=== PATIENT | female | born 1950 | race African-American/Black ===

== ENCOUNTER 2017-10-07 13:40 | Inpatient (IN) | payer OTHER ==
--- NOTE | 2017-10-07 14:11 | PDOC ---
History of Present Illness - General Chief Complaint: Pain, Acute Stated Complaint: PAIN,WEAKNESS Time Seen by Provider: 10/07/17 13:50 - History of Present Illness Initial Comments: 10/07/17 14:32 The patient is a 67 year old female with a history of obesity, HTN, HLD, DM who presents for evaluation of lower back pain. The patient reports gradual onset of left sided lower back pain with radiation into her left posterior thigh beginnin yesterday evening. She reports worsening pain prompting her to call ems for presentation to the ED. She states that the pain is very sharp in quality and worsens with palpation and with movement. She notes that if she keeps pressure off her lower back, it somewhat relieves her symptoms. She denies any incontinence, numbness, tingling, or weakness in her lower extremities and denies any saddle anesthesia. She denies fevers, chills, SOB, chest pain, abdominal pain, or changes with urination or bowel movements. Past History - Past Medical History Allergies/Adverse Reactions: Allergies Allergy/AdvReac Type Severity Reaction Status Date / Time Penicillins Allergy Verified 10/07/17 13:48 Sulfa (Sulfonamide Allergy Verified 10/07/17 13:48 Antibiotics) Home Medications: Ambulatory Orders Atorvastatin Ca [Lipitor] 20 mg PO HS 10/07/17 Furosemide [Lasix] 40 mg PO DAILY 10/07/17 Glipizide Xl [Glucotrol Xl -] 10 mg PO DAILY@0700 10/07/17 Asthma: Yes COPD: No Diabetes: Yes HTN: Yes Hypercholesterolemia: Yes - Surgical History Abdominal Surgery: Yes (HERNIA.) - Suicide/Smoking/Psychosocial Hx Smoking History: Never smoked Have you smoked in the past 12 months: No Information on smoking cessation initiated: No Hx Alcohol Use: No Drug/Substance Use Hx: No Substance Use Type: None Review of Systems - Review of Systems Comments:: 10/07/17 14:34 Constitutional: No fevers, chills, fatigue, malaise HEENT: No Rhinorrhea, nasal congestion, visual changes Cardiovascular: No chest pain, syncope, palpitations, lightheadedness Respiratory: No Cough, SOB, Hemoptysis, Gastrointestinal: No Abdominal pain, Nausea, Vomiting, Constipation, Diarrhea, Melena Genitourinary: No Dysuria, Frequency, Urgency, Hesitancy, Hematuria, Flank pain Musculoskeletal: Lower back pain. No Myalgia, arthralgia Skin: No rashes, bruising, pallor Neurologic: No Headache, Dizziness, Numbness, Weakness, or Tingling Psychiatric: No Hallucinations. No SI or HI *Physical Exam - Vital Signs Last Vital Signs Temp Pulse Resp BP Pulse Ox 98.5 F 86 18 141/70 100 10/07/17 13:48 10/07/17 13:48 10/07/17 13:48 10/07/17 13:48 10/07/17 13:48 - Physical Exam Comments: 10/07/17 14:35 General Appearance: Nourished. No Apparent Distress HEENT: EOMI, LAURA. No Pharyngeal Erythema, Tonsillar Exudate, Tonsillar Erythema Neck: No Cervical Lymphadenopathy Respiratory/Chest: Lungs Clear, Normal Breath Sounds. No Crackles, Rales, Rhonchi, Wheezing Cardiovascular: Regular Rhythm, Regular Rate. No Murmur, Gallops, Rubs Gastrointestinal/Abdominal: Normal Bowel Sounds, Soft. No Guarding, Rebound, Tenderness Musculoskeletal: Reproducible tenderness to palpation of the left lower back and left gluteus muscle. No midline tenderness or left sided lower back tenderness. No CVA Tenderness Extremity: Normal Capillary Refill Integumentary: Normal Color, Dry, Warm Neurologic: oil exploration engineer II-XII NML intact, Fully Oriented, Alert, Normal Mood/Affect, Normal Response, Motor Strength 5/5. Normal Finger to Nose and Heel to [place]. Sensation to light touch and temperature intact in the distal extremities bilaterally. Medical Decision Making - Medical Decision Making 10/07/17 14:37 The patient is a 67 year old female with a history of obesity, HTN, HLD, DM who presents for evaluation of lower back pain. Differential includes but is not limited to: Musculoskeletal pain, sciatica, disc herniation, compression fracture, UTI. Given the patient's symptoms and reproducible pain on physical exam, it is likely her symptoms are musculoskeletal in nature. However we will obtain a UA and plain films to evaluate for other etiologies. We will treat the patient with percocet, valium, and toradol here in the ED and continue to monitor and reassess. 10/07/17 17:46 Patient reports minimal improvement in her symptoms despite medications. She continues to be unable to ambulate due to her symptoms. We believe that she requires observation admission for further management at this time and PT evaluation given her continued symptoms despite maximal medical management. We discussed the case with Dr. Canchloa who accepted the patient for admission. *DC/Admit/Observation/Transfer Diagnosis at time of Disposition: Lower back pain Qualifiers: Chronicity: acute Back pain laterality: left Sciatica presence: with sciatica Sciatica laterality: sciatica of left side Qualified Code(s): M54.42 - Lumbago with sciatica, left side - Discharge Dispostion Condition at time of disposition: Stable Admit: Yes - Referrals Referrals: Rasheed New MD [Primary Care Provider] - - Patient Instructions - Post Discharge Activity
[2017-10-07] MEDS ORDERED: diazePAM 5 MG TABLET PO ONE (14:17)
[2017-10-07] MEDS ORDERED: KETOROLAC TROMETHAMINE 60 MG/2 ML VIAL IM ONE (14:17)
[2017-10-07] MEDS ORDERED: diazePAM 5 MG TABLET ONE (14:26)
[2017-10-07] MEDS ORDERED: KETOROLAC TROMETHAMINE 60 MG/2 ML VIAL ONE (14:26)
[2017-10-07 15:17] LABS: URINE APPEARANCE CLEAR; URINE BILIRUBIN NEGATIVE (NEGATIVE); URINE BLOOD 1+ (NEGATIVE); URINE COLOR LTYELLOW; URINE GLUCOSE (UA) NEGATIVE (NEGATIVE); URINE KETONE NEGATIVE (NEGATIVE); URINE LEUK ESTERASE NEGATIVE (NEGATIVE); URINE NITRITE NEGATIVE (NEGATIVE); URINE PROTEIN NEGATIVE (NEGATIVE); URINE UROBILINOGEN NEGATIVE mg/dL (0.2-1.0)
--- NOTE | 2017-10-07 15:17 | PDOC ---
Attending Attestation - Resident Resident Name: Faizan Moserel - ED Attending Attestation I have performed the following: I have examined & evaluated the patient, The case was reviewed & discussed with the resident, I agree w/resident's findings & plan, Exceptions are as noted - HPI HPI: 10/07/17 15:15 67-year-old female with history of morbid obesity presents with atraumatic left low back/left leg pain since yesterday. No motor or sensory deficits, no bladder or bowel issues. No fevers or chills. Pain radiates from the left buttock posteriorly in her thigh to her knee - Physicial Exam PE: 10/07/17 15:15 vital signs normal, afebrile. Seated on stretcher, morbidly obese No midline spine tenderness or deformity, reproducible discomfort in the left upper buttock 5 out of 5 flexion/extension at bilateral hip/knee/ankle/toes. Neurovascularly intact distally. - Medical Decision Making 10/07/17 15:16 Patient seen and evaluated with the resident. I agree with the overall evaluation, assessment, and management with the following summary of visit: 67-year-old female with morbid obesity presents with left low back/posterior thigh pain consistent with sciatica, possible lumbar radiculopathy. Limited red flags on history and physical exam, neurologically intact. UA LS-spine film Pain control Reassess
[2017-10-07 15:28] LABS: EPI CELLS RARE /HPF (FEW); URINE BACTERIA RARE /hpf (NONE SEEN); URINE HYALINE CAST 5 /lpf
--- NOTE | 2017-10-07 19:25 | HP ---
Admitting History and Physical - Primary Care Physician PCP: Lorie Canchola - Admission History of Present Illness: 67 year old female with a history of obesity, HTN, HLD, DM who presents for evaluation of lower back pain. The patient reports gradual onset of left sided lower back pain with radiation into her left posterior thigh beginnin yesterday evening. She reports worsening pain prompting her to call ems for presentation to the ED. She states that the pain is very sharp in quality and worsens with palpation and with movement. She notes that if she keeps pressure off her lower back, it somewhat relieves her symptoms. She denies any incontinence, numbness, tingling, or weakness in her lower extremities and denies any saddle anesthesia. She denies fevers, chills, SOB, chest pain, abdominal pain, or changes with urination or bowel movements. - Past Medical History Cardiovascular: Yes: HTN, Hyperlipdemia Endocrine: Yes: Diabetes Mellitus - Smoking History Smoking history: Never smoked Have you smoked in the past 12 months: No - Alcohol/Substance Use Hx Alcohol Use: No Home Medications - Allergies Allergies/Adverse Reactions: Allergies Allergy/AdvReac Type Severity Reaction Status Date / Time Penicillins Allergy Verified 10/07/17 13:48 Sulfa (Sulfonamide Allergy Verified 10/07/17 13:48 Antibiotics) - Home Medications Home Medications: Ambulatory Orders Atorvastatin Ca [Lipitor] 20 mg PO HS 10/07/17 Furosemide [Lasix] 40 mg PO DAILY 10/07/17 Glipizide Xl [Glucotrol Xl -] 10 mg PO DAILY@0700 10/07/17 Physical Examination Vital Signs: Vital Signs Temperature 98.5 F 10/07/17 13:48 Pulse Rate 81 10/07/17 18:52 Respiratory Rate 18 10/07/17 18:52 Blood Pressure 136/74 10/07/17 18:52 O2 Sat by Pulse Oximetry (%) 99 10/07/17 18:52 Constitutional: Yes: Calm HENT: Yes: Atraumatic Neck: Yes: Supple Cardiovascular: Yes: Regular Rate and Rhythm Respiratory: Yes: CTA Bilaterally Gastrointestinal: Yes: Normal Bowel Sounds Extremities: Yes: WNL Edema: LLE: Trace, RLE: Trace Peripheral Pulses WNL: Yes Neurological: Yes: Alert, Oriented ...Motor Strength: WNL Problem List - Problems (1) HTN (hypertension) Assessment/Plan: on meds Code(s): I10 - ESSENTIAL (PRIMARY) HYPERTENSION (2) Diabetes Assessment/Plan: on po meds Code(s): E11.9 - TYPE 2 DIABETES MELLITUS WITHOUT COMPLICATIONS (3) HLD (hyperlipidemia) Assessment/Plan: on meds Code(s): E78.5 - HYPERLIPIDEMIA, UNSPECIFIED (4) Lower back pain Assessment/Plan: more like sciatica prn pain meds pt eval neuro eval Code(s): M54.5 - LOW BACK PAIN Qualifiers: Chronicity: acute Back pain laterality: left Sciatica presence: with sciatica Sciatica laterality: sciatica of left side Qualified Code(s): M54.42 - Lumbago with sciatica, left side Assessment/Plan Laboratory Tests 10/07/17 15:10 Urine Color Ltyellow Urine Appearance Clear Urine pH 5.0 Ur Specific [place] 1.013 Urine Protein Negative Urine Glucose (UA) Negative Urine Ketones Negative Urine Blood 1+ H Urine Nitrite Negative Urine Bilirubin Negative Urine Urobilinogen Negative Ur Leukocyte Esterase Negative Urine WBC (Auto) 1 Urine RBC (Auto) <1 Ur Epithelial Cells Rare Urine Bacteria Rare Hyaline Casts 5 Active Medications Generic Name Dose Route Start Last Admin Trade Name Freq PRN Reason Stop Dose Admin Acetaminophen 650 mg 10/07/17 19:27 10/07/17 20:13 Tylenol - PO 650 mg Q6H PRN Administration FEVER OR PAIN Atorvastatin Calcium 20 mg 10/07/17 22:00 10/07/17 22:42 Lipitor - PO 20 mg HS ELI Administration Furosemide 40 mg 10/08/17 10:00 10/08/17 10:46 Lasix - PO 40 mg DAILY ELI Administration Gabapentin 400 mg 10/08/17 22:00 Neurontin - PO TID ELI Glipizide 10 mg 10/08/17 07:00 10/08/17 08:09 Glucotrol Xl - PO 10 mg DAILY@0700 ELI Administration Ibuprofen 600 mg 10/08/17 19:09 Motrin - PO Q8H PRN pain Ondansetron HCl 4 mg 10/08/17 14:52 10/08/17 15:03 Zofran Injection IVPB 4 mg Q4H PRN Administration NAUSEA AND/OR VOMITING Laboratory Results - last 24 hr 10/07/17 10/08/17 10/08/17 07:30 00:10 16:47 WBC 8.4 RBC 4.01 Hgb 11.6 Hct 37.5 MCV 93.5 MCH 29.0 MCHC 31.0 L RDW 15.7 H Plt Count 247 MPV 9.0 Neutrophils % 49.7 Lymphocytes % 37.3 D Monocytes % 9.2 Eosinophils % 3.1 D Basophils % 0.7 Sodium 143 Potassium 3.9 Chloride 105 Carbon Dioxide 29 Anion Gap 9 BUN 18 Creatinine 1.0 Creat Clearance w eGFR 54.97 POC Glucometer 97 Random Glucose 149 H Calcium 8.9 Total Bilirubin 0.5 AST 17 ALT 15 Alkaline Phosphatase 137 H Total Protein 6.8 Albumin 3.0 L
[2017-10-07] MEDS ORDERED: ACETAMINOPHEN 325 MG TABLET (FP) ONE (20:06)
[2017-10-07] MEDS: ACETAMINOPHEN 325 MG TABLET (FP) PO PRN (20:13)
[2017-10-07] MEDS ORDERED: ATORVASTATIN CA 40 MG TABLET (FP) ONE (22:31)
[2017-10-07] MEDS ORDERED: GABAPENTIN 100 MG CAPSULE (FP) ONE (22:32)
[2017-10-07] MEDS: ATORVASTATIN CA 20 MG TABLET (FP) PO SCH (22:42)
[2017-10-07] MEDS: GABAPENTIN 100 MG CAPSULE (FP) PO SCH (22:42)
[2017-10-08 00:50] LABS: ANION GAP 9 (8-16); BLOOD UREA NITROGEN 18 mg/dL (7-18); CALCIUM 8.9 mg/dL (8.5-10.1); CHLORIDE 105 mmol/L (98-107); CO2 29 mmol/L (21-32); GLUCOSE,RANDOM 149 mg/dL (74-106); POTASSIUM 3.9 mmol/L (3.5-5.1); SGOT/AST 17 U/L (15-37); SGPT/ALT 15 U/L (12-78); SODIUM 143 mmol/L (136-145)
[2017-10-08 00:51] LABS: ALK PHOS 137 U/L (45-117); BILIRUBIN,TOTAL 0.5 mg/dL (0.2-1.0); TOT PROT 6.8 g/dl (6.4-8.2)
[2017-10-08] MEDS ORDERED: HYDROmorphone HCL CARPU-JECT 1 MG/1 ML DISP.SYRIN ONE ×2 (03:35→12:33)
[2017-10-08] MEDS: HYDROmorphone HCL CARPU-JECT 1 MG/1 ML DISP.SYRIN IVPB PRN ×2 (03:53→12:45)
[2017-10-08] MEDS: GABAPENTIN 100 MG CAPSULE (FP) PO SCH ×2 (06:55→15:11)
[2017-10-08] MEDS: glipiZIDE-XL 10 MG TAB.ER.24 (FP) PO SCH (08:09)
[2017-10-08 08:31] LABS: BASO % 0.7 % (0-2.0); EOS % 3.1 % (0-4.5); HEMATOCRIT 37.5 % (32.4-45.2); HEMOGLOBIN 11.6 GM/dL (10.7-15.3); LYMPH % 37.3 % (8-40); MEAN CELL VOLUME 93.5 fl (80-96); MONO % 9.2 % (3.8-10.2); NEUT % 49.7 % (42.8-82.8); PLATELET COUNT 247 K/MM3 (134-434); RBC 4.01 M/mm3 (3.60-5.2); RDW 15.7 % (11.6-15.6); WHITE BLOOD COUNT 8.4 K/mm3 (4.0-10.0)
[2017-10-08] MEDS: FUROSEMIDE 40 MG TABLET (FP) PO SCH (10:46)
[2017-10-08 14:14] VITALS: BMI 52.6
[2017-10-08] MEDS ORDERED: oxyCODONE HCL 5 MG TABLET PO PRN ×2 (14:52→22:14)
[2017-10-08] MEDS ORDERED: ONDANSETRON 4 MG/2 ML VIAL IVPB PRN (14:52)
[2017-10-08] MEDS ORDERED: ONDANSETRON 4 MG/2 ML VIAL ONE (15:00)
--- NOTE | 2017-10-08 18:14 | CON.NEURO ---
Consult - Past Medical History Cardio/Vascular: Yes: HTN, Hyperlipdemia Endocrine: Yes: Diabetes Mellitus - Alcohol/Substance Use Hx Alcohol Use: No - Smoking History Smoking history: Never smoked Have you smoked in the past 12 months: No Home Medications - Allergies Allergies/Adverse Reactions: Allergies Allergy/AdvReac Type Severity Reaction Status Date / Time Penicillins Allergy Verified 10/07/17 13:48 Sulfa (Sulfonamide Allergy Verified 10/07/17 13:48 Antibiotics) - Home Medications Home Medications: Ambulatory Orders Atorvastatin Ca [Lipitor] 20 mg PO HS 10/07/17 Furosemide [Lasix] 40 mg PO DAILY 10/07/17 Glipizide Xl [Glucotrol Xl -] 10 mg PO DAILY@0700 10/07/17 Physical Exam-Neuro Vital Signs: Vital Signs Temperature 97.4 F L 10/08/17 15:00 Pulse Rate 68 10/08/17 15:00 Respiratory Rate 20 10/08/17 15:00 Blood Pressure 168/90 10/08/17 15:00 O2 Sat by Pulse Oximetry (%) 99 10/08/17 17:44 Labs: CBC, BMP 10/07/17 07:30 10/08/17 00:10 Assessment/Plan cc Severe low back pain for two days HPI 67 year old female history of obesity, htn, dm, hld came with severe low back pain for two days. She denies bowel or bladder symptoms. She says she could not walk. She has both hip replaced in past . She is waiting for right knee replacement. She denies any trauma, fever or cancer. Pains is moderate to severe intensity. activity makes her pain worse. PMH as above Allergies/Adverse Reactions: Allergies Allergy/AdvReac Type Severity Reaction Status Date / Time Penicillins Allergy Verified 10/07/17 13:48 Sulfa (Sulfonamide Allergy Verified 10/07/17 13:48 Antibiotics) - Home Medications Atorvastatin Ca [Lipitor] 20 mg PO HS 10/07/17 Furosemide [Lasix] 40 mg PO DAILY 10/07/17 Glipizide Xl [Glucotrol Xl -] 10 mg PO DAILY@0700 10/07/17 Neurological Examination Alert oriented x 3 CN all intact localized back tenderness there is no sensory loss left knee reflex are normal, ankle reflex is diminished motor exam is normal, except she has poor affort in left hip flexion Assessment- Severe radicular low back pain, no evidence of cauda equina syndrome , most likley l5-s1 radiculopathy. She is obese and not sure if she would fit into mri machine. She is not open to get mri of L spine Plan -- suggest to start gabapnetin and prednisone 20 mg once a day for three days - opoioid prn for pain -PT - Consider Pain management - MRI of L spine Thanks for consult Ignacio Thomason MD
[2017-10-08] MEDS ORDERED: predniSONE 20 MG TABLET (UD) PO ONE (18:30)
--- NOTE | 2017-10-08 19:22 | PN ---
Progress Note, Physician History of Present Illness: still has pain - Current Medication List Current Medications: Active Medications Acetaminophen (Tylenol -) 650 mg PO Q6H PRN PRN Reason: FEVER OR PAIN Last Admin: 10/07/17 20:13 Dose: 650 mg Atorvastatin Calcium (Lipitor -) 20 mg PO HS [facility] Last Admin: 10/07/17 22:42 Dose: 20 mg Furosemide (Lasix -) 40 mg PO DAILY [facility] Last Admin: 10/08/17 10:46 Dose: 40 mg Gabapentin (Neurontin -) 400 mg PO TID [facility] Glipizide (Glucotrol Xl -) 10 mg PO DAILY@0700 [facility] Last Admin: 10/08/17 08:09 Dose: 10 mg Ibuprofen (Motrin -) 600 mg PO Q8H PRN PRN Reason: pain Ondansetron HCl (Zofran Injection) 4 mg IVPB Q4H PRN PRN Reason: NAUSEA AND/OR VOMITING Last Admin: 10/08/17 15:03 Dose: 4 mg - Objective Vital Signs: Vital Signs Temperature 97.4 F L 10/08/17 15:00 Pulse Rate 68 10/08/17 15:00 Respiratory Rate 20 10/08/17 15:00 Blood Pressure 168/90 10/08/17 15:00 O2 Sat by Pulse Oximetry (%) 99 10/08/17 17:44 Constitutional: Yes: No Distress HENT: Yes: Atraumatic Neck: Yes: Supple Cardiovascular: Yes: Regular Rate and Rhythm Respiratory: Yes: CTA Bilaterally Gastrointestinal: Yes: Normal Bowel Sounds Extremities: Yes: WNL Neurological: Yes: Alert, Oriented ...Motor Strength: WNL Labs: CBC, BMP 10/07/17 07:30 10/08/17 00:10 Problem List - Problems (1) HTN (hypertension) Assessment/Plan: on meds Code(s): I10 - ESSENTIAL (PRIMARY) HYPERTENSION (2) Diabetes Assessment/Plan: on po meds Code(s): E11.9 - TYPE 2 DIABETES MELLITUS WITHOUT COMPLICATIONS (3) HLD (hyperlipidemia) Assessment/Plan: on meds Code(s): E78.5 - HYPERLIPIDEMIA, UNSPECIFIED (4) Lower back pain Assessment/Plan: more like sciatica prn pain meds pt eval neuro eval pain management Code(s): M54.5 - LOW BACK PAIN Qualifiers: Chronicity: acute Back pain laterality: left Sciatica presence: with sciatica Sciatica laterality: sciatica of left side Qualified Code(s): M54.42 - Lumbago with sciatica, left side
[2017-10-08] MEDS: IBUPROFEN 600 MG TABLET (FP) PO PRN (20:26)
[2017-10-08] MEDS: GABAPENTIN 400 MG CAPSULE (FP) PO SCH (22:53)
[2017-10-08] MEDS: ATORVASTATIN CA 20 MG TABLET (FP) PO SCH (22:53)
[2017-10-09] MEDS ORDERED: amLODIPine BESYLATE 5 MG TABLET (FP) PO ONE (00:45)
[2017-10-09] MEDS: GABAPENTIN 400 MG CAPSULE (FP) PO SCH ×3 (05:50→21:11)
[2017-10-09] MEDS: IBUPROFEN 600 MG TABLET (FP) PO PRN ×3 (05:50→21:10)
[2017-10-09] MEDS: glipiZIDE-XL 10 MG TAB.ER.24 (FP) PO SCH (06:15)
[2017-10-09] MEDS: ACETAMINOPHEN 325 MG TABLET (FP) PO PRN (09:20)
[2017-10-09] MEDS: FUROSEMIDE 40 MG TABLET (FP) PO SCH (09:57)
[2017-10-09] MEDS ORDERED: DOCUSATE SODIUM 100 MG CAPSULE (FP) PO SCH (10:00)
[2017-10-09] MEDS: DOCUSATE SODIUM 100 MG CAPSULE (FP) PO SCH ×2 (11:45→21:11)
[2017-10-09] MEDS: POLYETHYLENE GLYCOL 3350 119 GM BTL PO SCH (13:56)
--- NOTE | 2017-10-09 17:26 | PN ---
Progress Note, Physician History of Present Illness: still has pain - Current Medication List Current Medications: Active Medications Acetaminophen (Tylenol -) 650 mg PO Q6H PRN PRN Reason: FEVER OR PAIN Last Admin: 10/09/17 09:20 Dose: 650 mg Atorvastatin Calcium (Lipitor -) 20 mg PO HS [facility] Last Admin: 10/08/17 22:53 Dose: 20 mg Docusate Sodium (Colace -) 100 mg PO BID [facility] Last Admin: 10/09/17 11:45 Dose: Not Given Furosemide (Lasix -) 40 mg PO DAILY [facility] Last Admin: 10/09/17 09:57 Dose: 40 mg Gabapentin (Neurontin -) 400 mg PO TID [facility] Last Admin: 10/09/17 13:56 Dose: 400 mg Glipizide (Glucotrol Xl -) 10 mg PO DAILY@0700 [facility] Last Admin: 10/09/17 06:15 Dose: 10 mg Ibuprofen (Motrin -) 600 mg PO Q8H PRN PRN Reason: pain Last Admin: 10/09/17 13:54 Dose: 600 mg Ondansetron HCl (Zofran Injection) 4 mg IVPB Q4H PRN PRN Reason: NAUSEA AND/OR VOMITING Last Admin: 10/08/17 15:03 Dose: 4 mg Oxycodone HCl (Roxicodone -) 5 mg PO Q6H PRN Last Admin: 10/09/17 09:18 Dose: 5 mg Polyethylene Glycol (Miralax (For Daily Use) -) 17 gm PO DAILY [facility] Last Admin: 10/09/17 13:56 Dose: 17 grams - Objective Vital Signs: Vital Signs Temperature 98.1 F 10/09/17 14:31 Pulse Rate 70 10/09/17 15:58 Respiratory Rate 20 10/09/17 15:58 Blood Pressure 154/89 10/09/17 15:58 O2 Sat by Pulse Oximetry (%) 98 10/09/17 09:30 Constitutional: Yes: No Distress HENT: Yes: Atraumatic Neck: Yes: Supple Cardiovascular: Yes: Regular Rate and Rhythm Respiratory: Yes: CTA Bilaterally Gastrointestinal: Yes: Normal Bowel Sounds Extremities: Yes: WNL Neurological: Yes: Alert, Oriented Labs: CBC, BMP 10/07/17 07:30 10/08/17 00:10 Problem List - Problems (1) HTN (hypertension) Assessment/Plan: on meds Code(s): I10 - ESSENTIAL (PRIMARY) HYPERTENSION (2) Diabetes Assessment/Plan: on po meds Code(s): E11.9 - TYPE 2 DIABETES MELLITUS WITHOUT COMPLICATIONS (3) HLD (hyperlipidemia) Assessment/Plan: on meds Code(s): E78.5 - HYPERLIPIDEMIA, UNSPECIFIED (4) Lower back pain Assessment/Plan: more like sciatica prn pain meds pt eval neuro eval pain management Code(s): M54.5 - LOW BACK PAIN Qualifiers: Chronicity: acute Back pain laterality: left Sciatica presence: with sciatica Sciatica laterality: sciatica of left side Qualified Code(s): M54.42 - Lumbago with sciatica, left side
[2017-10-09] MEDS: amLODIPine BESYLATE 5 MG TABLET (FP) PO SCH (17:53)
[2017-10-09] MEDS: ATORVASTATIN CA 20 MG TABLET (FP) PO SCH (21:11)
[2017-10-10] MEDS: glipiZIDE-XL 10 MG TAB.ER.24 (FP) PO SCH (06:14)
[2017-10-10] MEDS: GABAPENTIN 400 MG CAPSULE (FP) PO SCH ×2 (06:14→13:52)
--- NOTE | 2017-10-10 09:56 | PN ---
Progress Note (short form) - Note Progress Note: HPI 67 year old female history of obesity, htn, dm, hld came with severe low back pain for two days. She denies bowel or bladder symptoms. She says she could not walk. She has both hip replaced in past . She is waiting for right knee replacement. She denies any trauma, fever or cancer. Pains is moderate to severe intensity. activity makes her pain worse. pain is better and she is complaining of constipation Neurological Examination Alert oriented x 3 CN all intact localized back tenderness there is no sensory loss left knee reflex are normal, ankle reflex is diminished motor exam is normal, except she has poor affort in left hip flexion Assessment- Severe radicular low back pain, no evidence of cauda equina syndrome , most likley l5-s1 radiculopathy. she refused to do mri of virgil mota. Neuro exam is stable, pain is better today and complain of constipation Plan -- continue gabapentin and oxycodone prn - waiting to see pain management continue pt - Patient can go home after enema, as pain is better, and would plan open mri if pain persists. Thanks for consult Ignacio Thomason MD
[2017-10-10] MEDS: amLODIPine BESYLATE 5 MG TABLET (FP) PO SCH (10:39)
[2017-10-10] MEDS: POLYETHYLENE GLYCOL 3350 119 GM BTL PO SCH (10:39)
[2017-10-10] MEDS: DOCUSATE SODIUM 100 MG CAPSULE (FP) PO SCH (10:39)
[2017-10-10] MEDS: FUROSEMIDE 40 MG TABLET (FP) PO SCH (10:39)
[2017-10-10] MEDS: IBUPROFEN 600 MG TABLET (FP) PO PRN (13:52)
[2017-10-10 15:55] VITALS: BP 154/87; PULSE 86; TEMP 98.8
--- NOTE | 2017-10-10 17:04 | DS ---
Physical Examination Vital Signs: Vital Signs Temperature 98.8 F 10/10/17 14:53 Pulse Rate 86 10/10/17 14:53 Respiratory Rate 19 10/10/17 14:53 Blood Pressure 154/87 10/10/17 14:53 O2 Sat by Pulse Oximetry (%) 100 10/10/17 12:00 Constitutional: Yes: No Distress HENT: Yes: Atraumatic Neck: Yes: Supple Cardiovascular: Yes: Regular Rate and Rhythm Respiratory: Yes: CTA Bilaterally Gastrointestinal: Yes: Normal Bowel Sounds Extremities: Yes: WNL Edema: Yes Neurological: Yes: Alert, Oriented Labs: CBC, BMP 10/07/17 07:30 10/08/17 00:10 Discharge Summary Reason For Visit: LOW BACK PAIN Current Active Problems Diabetes (Acute) HLD (hyperlipidemia) (Acute) HTN (hypertension) (Acute) Lower back pain (Acute) Condition: Stable - Instructions Diet, Activity, Other Instructions: fu neuro/pain management Referrals: Rasheed New MD [Primary Care Provider] - Brie Pricne MD [Staff Physician] - Maxwell Thakkar MD [Staff Physician] - Drew Fernandez MD [Staff Physician] - - Home Medications Comprehensive Discharge Medication List: Ambulatory Orders Atorvastatin Ca [Lipitor] 20 mg PO HS 10/07/17 Furosemide [Lasix] 40 mg PO DAILY 10/07/17 Glipizide Xl [Glucotrol Xl -] 10 mg PO DAILY@0700 10/07/17 Ibuprofen [Motrin -] 600 mg PO Q8H PRN #30 tablet [facility]17 [facility]
== END 2017-10-10 18:41 | disposition home or self-care (01) | DRG 552 ==
LOC: JER 13:40 → SUPCPDRO 13:40 → JERBED 16:59 → J5S 10-08 14:35 → OBSVTOIN 10-10 11:00
PROVIDERS: ADMIT Internal Medicine; ATTEND Internal Medicine
DX: M54.17 Radiculopathy, lumbosacral region (principal); Z68.43 Body mass index [BMI] 50.0-59.9, adult; M54.5 Low back pain; E78.5 Hyperlipidemia, unspecified; I10 Essential (primary) hypertension; E11.9 Type 2 diabetes mellitus without complications; M54.42 Lumbago with sciatica, left side; E66.9 Obesity, unspecified
CPT/HCPCS: 36415; 72100-TC; 80053; 81003; 81015; 82962; 85025; 87086; 97116-GP; 97162-GP; 99285-25; G0378